=== PATIENT | female | born 1990 | race Caucasian/White ===

== ENCOUNTER → 2021-04-25 08:48 | Outpatient (CLI) | payer OTHER, SELFPAY ==
[2021-04-25 09:32] LABS: Internal QC Validated? YES +Cl - CLEAR BKGD
[2021-04-25 09:42] LABS: Pregnancy, Serum, hCG Quali. POSITIVE Negative
== END ==
PROVIDERS: PCP Nurse Practitioner; Referring Provider Nurse Practitioner Family; Visit Provider Nurse Practitioner Family
DX: N92.6 Irregular menstruation, unspecified (principal)
CPT/HCPCS: 36415; 84703

== ENCOUNTER → 2021-04-30 10:35 | Outpatient (CLI) | payer OTHER, SELFPAY ==
[2016-08-27 07:08] VITALS: BMI 34.3
[2021-04-30 10:53] LABS: Hematocrit 41.7 % (37-47); Hemoglobin 14.3 g/dL (12.0-15.0); Mean Corp Hgb Conc 34.3 g/dL (32-36); Mean Corpuscular Hgb 29.9 pg (27.0-32.0); Mean Corpuscular Volume 87.1 fL (81-99); Mean Platelet Vol. 10.7 fl (6.2-12.0); Platelet Count 216 K/mm3 (150-450); RBC Distribution Width CV 12.6 % (11.6-14.6); RBC Distribution Width SD 39.8 fl (35.1-43.9); Red Blood Count 4.79 M/mm3 (4.2-5.4); White Blood Count 7.7 K/mm3 (4.4-11.0)
[2021-04-30 11:10] LABS: hCG Titer Quant., Serum 845 mIU/mL (1-3)
== END ==
PROVIDERS: PCP Nurse Practitioner; Visit Provider Obstetrics & Gynecology
DX: O26.899 Other specified pregnancy related conditions, unspecified trimester (principal); R10.2 Pelvic and perineal pain; Z3A.00 Weeks of gestation of pregnancy not specified
CPT/HCPCS: 36415; 84702; 85027; 86850; 86900; 86901

== ENCOUNTER → 2021-05-02 08:36 | Outpatient (CLI) | payer OTHER, SELFPAY ==
[2016-08-27 07:08] VITALS: BMI 34.3
[2021-05-02 10:53] LABS: hCG Titer Quant., Serum 1788 mIU/mL (1-3)
== END ==
PROVIDERS: PCP Nurse Practitioner; Visit Provider Obstetrics & Gynecology
DX: O26.899 Other specified pregnancy related conditions, unspecified trimester (principal); R10.2 Pelvic and perineal pain; Z3A.00 Weeks of gestation of pregnancy not specified
CPT/HCPCS: 36415; 84702

== ENCOUNTER 2021-05-09 05:35 | Emergency (ER) | payer OTHER, MEDICAID, SELFPAY ==
[2021-05-09 05:37] VITALS: BP 117/92; PULSE 108; RESP 16; TEMP 36.3; O2SAT 100; BMI 22.8
--- NOTE | 2021-05-09 05:45 | EKG12_ITS ---
Test Reason : PAIN/OTHER Blood Pressure : / mmHG Vent. Rate : 088 BPM Atrial Rate : 088 BPM P-R Int : 140 ms QRS Dur : 076 ms QT Int : 338 ms P-R-T Axes : 073 068 062 degrees QTc Int : 408 ms Normal sinus rhythm Normal ECG Confirmed by DOC JERONIMO, JESSIE ([id number]), production editor LISA MANNING ([id number]) on 05/13/2021 10:15:47 AM Referred By: VIKTOR Confirmed By:JESSIE ROACH MD
--- NOTE | 2021-05-09 05:46 | EDS_ITS ---
HPI History of Present Illness Chief Complaint: Other, Pain/Inj Narrative Narrative: 31-year-old female with history of bulimia presenting with right jaw pain. She states it started yesterday. It does not hurt worse with chewing. She denies any dental pain. She denies any chest pain, palpitations, shortness of breath. She states she was googling symptoms of right jaw pain and thought she might be having a heart attack. She has no history of cardiac disease. She does not have hypertension, diabetes, hyperlipidemia. No history of DVT/PE. [facility] Medical History Bulimia Home Medications vit,[id number] [Prenatabs FA] 1 tab PO DAILY 08/27/16 [History Last Taken 08/26/16 22:00] Allergy/AdvReac Type Severity Reaction Status Date / Time No Known Allergies Allergy Verified 05/09/21 05:37 Surgical History History of Social History Smoking Status: Never smoker ROS ROS ED Constitutional Constitutional ED: Denies chills or fever(s) Eyes Eyes: Denies blurry vision or change in vision ENT ENT ED: Reports other Details: Right jaw pain ; Denies rhinorrhea or sore throat Cardiovascular Cardiovascular: Denies chest pain or palpitations Respiratory/Chest Respiratory/Chest: Denies cough or dyspnea Gastrointestinal Gastrointestinal: Denies abdominal pain, nausea or vomiting Genitourinary Genitourinary ED: Denies dysuria Integumentary Denies abscess or rash Neurologic Neurologic: Denies headache(s) or paresthesias Psychiatric Psychiatric: Reports anxiety; Denies depression EXAM Physical Exam Const Vital Signs: 05/09/21 05:37 Temperature 97.3 F L Temperature Source Temporal Pulse Rate 108 H Respiratory Rate 16 Blood Pressure 117/92 H Blood Pressure Mean 100 Pulse Ox 100 Oxygen Delivery Method Room Air Positive well nourished General Appearance ED: NAD; Negative for pallor HEENT Reports normocephalic, head/scalp atraumatic and moist mucous membranes HEENT Narrative: Mild tenderness to palpation right TMJ. No jaw malocclusion. No audible or probable click or pop. atraumatic Mouth ED: Yes oral and palatal mucosa normal, Yes lips normal, Yes tongue normal and Yes salivary gland normal Mouth: oral and palatal mucosa normal, lips normal, tongue normal and salivary gland normal Eyes PERRL and EOMs intact bilaterally Neck no lymphadenopathy and supple Chest Wall inspection of chest normal and palpation of chest normal Resp normal respiratory effort and clear to auscultation bilaterally Auscultation: Negative for rales, rhonchi or wheezes Cardio regular rate and regular rhythm GI normal to inspection, nondistended, normoactive bowel sounds and non-distended Auscultation: normoactive bowel sounds Palpation: soft Narrative: Deferred Back/Spine no CVA tenderness Cervical Spine: Negative for cervical spine tenderness Neuro oriented x3 and CN's II-XII intact bilaterally Sensorium / Orientation: alert Motor Exam: strength 5/5 throughout Psych mental status grossly normal Attitude: No agitated Skin no rashes or lesions noted and no wounds General Skin Exam: Negative for jaundice or pallor MDM MDM MDM Narrative Medical decision making narrative: Patient presenting with nontraumatic right jaw pain. She is not having chest pain or shortness of breath. She states she was googling things it would cause jaw pain and she is concerned she is having a heart attack although she has no risk factors. Her heart score is 0. Patient counseled that this is unlikely to be a heart attack given she does not have any cardiac symptoms. She requests an EKG be performed. EKG on my interpretation is sinus rhythm at 88 bpm without signs of ST elevation or depression. There were no dysrhythmias noted. Patient counseled she should use Tylenol alternating with ibuprofen at home. She can use ice as well. She will follow- up with her PCP to ensure resolution. Impression: 1. Right jaw pain Discharge Plan Triage Chief Complaint: Other, Pain/Inj ED Provider: Al Decker Dx/Rx/DC Orders Prescriptions: No Action Prenatabs FA 1 TABLET tablet 1 tab PO DAILY RF: 0 Primary Care Provider: Carolyn Murphy NP
[2021-05-09 06:25] VITALS: RESP 16
== END 2021-05-09 06:25 | disposition home or self-care (01) ==
PROVIDERS: Emergency Provider Student in an Organized Health Care Education/Training Program; PCP Nurse Practitioner
DX: R68.84 Jaw pain (principal)
CPT/HCPCS: 93005; 99282

== ENCOUNTER → 2021-06-25 13:23 | Outpatient (CLI) | payer OTHER, SELFPAY ==
[2021-06-25 17:35] LABS: Absolute Neutrophil Count 4.5 X10^3/uL (2.0-7.7); Basophil# 0.01 X10^3/uL; Basophil% 0.2 % (0-1); Eosinophil# 0.13 X10^3/uL; Eosinophils% 2.1 % (0-5); Hematocrit 35.4 % (37-47); Hemoglobin 12.3 g/dL (12.0-15.0); Lymphocyte % 20.9 % (19-41); Mean Corp Hgb Conc 34.7 g/dL (32-36); Mean Corpuscular Hgb 30.4 pg (27.0-32.0); Mean Corpuscular Volume 87.4 fL (81-99); Mean Platelet Vol. 10.3 fl (6.2-12.0); Monocyte% 4.8 % (0-10); NRBC Flagged by Analyzer 0 % (0-5); Neutrophil # 4.45 X10^3/uL (2.7-7.7); Neutrophil % 71.5 % (47-70); Platelet Count 156 K/mm3 (150-450); RBC Distribution Width CV 11.9 % (11.6-14.6); RBC Distribution Width SD 38.7 fl (35.1-43.9); Red Blood Count 4.05 M/mm3 (4.2-5.4); White Blood Count 6.2 K/mm3 (4.4-11.0)
[2021-06-26 12:42] LABS: HIV - WCH Preliminary Reactive (Nonreactive); Hepatitis B Surface Antigen Non-Reactive (Nonreactive); Rubella IgG Reactive (Nonreactive); Syphilis Antibodies Non-reactive
== END ==
LOC: LAB 13:37 → MTLAB 14:42
PROVIDERS: PCP Nurse Practitioner; Referring Provider Obstetrics & Gynecology; Visit Provider Obstetrics & Gynecology
DX: Z34.81 Encounter for supervision of other normal pregnancy, first trimester (principal)
CPT/HCPCS: 36415; 85025; 86703; 86762; 86780; 86803; 86804; 86850; 86900; 86901; 87340

== ENCOUNTER → 2021-08-04 13:43 | Outpatient (CLI) | payer OTHER, SELFPAY ==
--- NOTE | 2021-08-04 14:43 | US_ITS ---
STUDY: SECOND AND THIRD TRIMESTER OBSTETRICAL ULTRASOUND REASON FOR EXAM: Female, 31 years old ANATOMY LMP: 03/27/2021. TECHNIQUE: Transabdominal TECHNICAL QUALITY: Adequate. PRIOR ULTRASOUND: None. FINDINGS: There is a single intrauterine fetus. The fetus is in a cephalic presentation. There is demonstrated cardiac activity with a heart rate of 137 bpm. There is a normal amniotic fluid volume. The largest amniotic fluid pocket measures 3.4 cm x 3.9 cm. The amniotic fluid index (SHYANN) is within normal limits. The placenta is anterior in location and is not low lying. There are Grade 0 placental changes. The cervix measures 3.8 cm in length. There is a 2.2 cm x 2.2 cm complex cyst in the left ovary. BIOMETRY: BPD: 4.13 cm: 18 weeks, 3 days HC: 15.5 cm: 18 weeks, 3 days AC: 13.3 cm: 18 weeks, 5 days FL: 2.64 cm: 18 weeks, 0 days CI: 76.5% FL/BPD: 63.8% FL/HC: FL/AC: 19.8% HC/AC: 1.16 age by current US: 18 weeks, 2 days. LAURA by current US: 01/04/2020. Estimated weight: 241 grams, +/- 36 grams, 38.1 %. Age by LMP: 18 weeks, 4 days. LAURA by LMP: 01/01/2022. ANATOMY: Gender: Cranium: Normal lateral ventricles. Normal choroid plexus. Normal cerebellum. Normal cisterna magna. Normal face, nose and lips. Chest: Normal 4-chamber heart. Abdomen/Pelvis: Normal diaphragm. Normal stomach. Normal abdominal wall. Normal cord insertion. Normal 3 vessel cord. Normal kidneys. Normal bladder. Spine: Suboptimal visualization of the cervical, thoracic, lumbar spine and sacrum due to the positioning. Extremities: Normal bilateral upper extremities. Normal bilateral lower extremities. US/OB Anatomy Scan IMPRESSION: Single live intrauterine gestation with a mean gestational age of 18 weeks and 2 days. Limited visualization of the spine due to the positioning. Follow-up recommended. Electronically Signed: Didier Daniels MD at 9:16 EDT , Service support ,
== END ==
PROVIDERS: PCP Nurse Practitioner; Referring Provider Advanced Practice Midwife; Visit Provider Advanced Practice Midwife
DX: Z34.82 Encounter for supervision of other normal pregnancy, second trimester (principal)
CPT/HCPCS: 76805

== ENCOUNTER 2021-10-09 14:33 | Outpatient (CLI) | payer OTHER, SELFPAY ==
[2021-10-09 14:32] VITALS: BP 106/73; PULSE 91; RESP 16; TEMP 36.8; O2SAT 100; BMI 29.2
[2021-10-09] MEDS: 0.9% Saline Lock 10 ML Syringe IV (14:39)
[2021-10-09 15:13] VITALS: BP 96/63; PULSE 91; RESP 16; TEMP 36.5; O2SAT 100
[2021-10-09 15:58] VITALS: BP 98/61; PULSE 88; RESP 16; TEMP 37.2; O2SAT 100
== END 2021-10-09 16:18 | disposition home or self-care (01) ==
LOC: MS3OUT 14:33 → MS3 14:35
PROVIDERS: PCP Nurse Practitioner; Referring Provider Nurse Practitioner Adult Health; Visit Provider Nurse Practitioner Adult Health
DX: Z23 Encounter for immunization (principal); U07.1 COVID-19
CPT/HCPCS: J7050; M0245; Q0245; A4216

== ENCOUNTER 2021-10-25 08:54 | Outpatient (CLI) | payer OTHER, SELFPAY ==
[2021-10-25 09:46] LABS: Hematocrit 33.8 % (37-47); Hemoglobin 11.5 g/dL (12.0-15.0); Mean Corpuscular Hgb 28.8 pg (27.0-32.0); Mean Corpuscular Volume 84.5 fL (81-99); Mean Platelet Vol. 10.4 fl (6.2-12.0); Platelet Count 194 K/mm3 (150-450); RBC Distribution Width CV 13.2 % (11.6-14.6); RBC Distribution Width SD 40.6 fl (35.1-43.9); White Blood Count 9.8 K/mm3 (4.4-11.0)
[2021-10-25 10:19] LABS: Glucose Challenge Gest 1H 50g 140 mg/dL (70-140)
[2021-10-27 08:57] LABS: Syphilis Antibodies Non-reactive
== END 2021-10-25 23:59 | disposition short-term general hospital (02) ==
LOC: LAB 08:55
PROVIDERS: PCP Nurse Practitioner; Referring Provider Obstetrics & Gynecology; Visit Provider Obstetrics & Gynecology
DX: Z34.92 Encounter for supervision of normal pregnancy, unspecified, second trimester (principal)
CPT/HCPCS: 36415; 82950; 85027; 86780; 86850; 86900; 86901

== ENCOUNTER 2021-11-22 06:59 | Outpatient (CLI) | payer OTHER, MEDICAID, SELFPAY ==
[2021-11-22 07:21] LABS: Bedside Glucose 65 mg/dL (70-110)
[2021-11-22 07:44] LABS: Glucose GTT-Gestation. Fasting 74 mg/dL (<105)
[2021-11-22 09:03] LABS: Glucose GTT-Gestational 1 Hr 177 mg/dL (<190)
[2021-11-22 09:56] LABS: Glucose GTT-Gestational 2 Hr 153 mg/dL (<165)
[2021-11-22 10:48] LABS: Glucose GTT-Gestational 3 Hr 103 L (<145)
== END 2021-11-22 23:59 | disposition home or self-care (01) ==
PROVIDERS: PCP Nurse Practitioner; Referring Provider Obstetrics & Gynecology; Visit Provider Obstetrics & Gynecology
DX: O09.93 Supervision of high risk pregnancy, unspecified, third trimester (principal); O99.810 Abnormal glucose complicating pregnancy; Z3A.30 30 weeks gestation of pregnancy
CPT/HCPCS: 36415; 82951; 82952; 82962

== ENCOUNTER 2021-12-17 08:28 | Outpatient (CLI) | payer OTHER, MEDICAID, SELFPAY ==
[2021-12-17 08:36] VITALS: BP 128/83; PULSE 96
[2021-12-17 08:37] VITALS: PULSE 101; O2SAT 100
[2021-12-17 08:38] VITALS: BP 128/83; PULSE 100; TEMP 36.8; O2SAT 100
[2021-12-17 08:44] VITALS: BMI 30.1
--- NOTE | 2021-12-17 09:02 | OB.TRI.NOTE ---
HPI - General HPI Narrative GERTRUDIS MARROQUIN, is a 31 F who presents complaining of decreased movement over the last day or 2. No vaginal bleeding or leaking of fluid Maternal Data Information Final LAURA: 01/01/22 Gestational age: 37 6/7 PFSH PFSH Medical History Bulimia Home Medications vit,[id number] [Prenatabs FA] 1 tab PO DAILY 08/27/16 [History Last Taken 12/16/21 22:00] Allergy/AdvReac Type Severity Reaction Status Date / Time Sulfa (Sulfonamide Allergy Unknown unknown Verified 10/08/21 14:43 Antibiotics) Surgical History History of Social History Smoking Status: Never smoker History Elective abortions Hx Para 0 Spontaneous abortions Hx # Term Pregnancies Ectopic pregnancies Hx # Pregnancies Multiple births # of living children NST FHR Rate Baby A Baseline: normal Accelerations:: 15 x 15 Decelerations:: None NST Reactive:: Yes FHR Category:: Category I Uterine Activity:: Quiet Assessment & Plan (1) 37 weeks gestation of : (2) Decreased movement affecting management of mother, antepartum: PLAN: Kick counts. Follow-up at next appointment or as needed. NST is reactive, patient is reassured.
== END 2021-12-17 23:59 | disposition home or self-care (01) ==
LOC: WPOUT 08:30 → WP 08:30
PROVIDERS: PCP Nurse Practitioner; Visit Provider Obstetrics & Gynecology
DX: O36.8130 Decreased fetal movements, third trimester, not applicable or unspecified (principal); O34.219 Maternal care for unspecified type scar from previous cesarean delivery; Z3A.37 37 weeks gestation of pregnancy
CPT/HCPCS: 59025; 59050; 99218; G0378

== ENCOUNTER 2021-12-25 09:20 | Inpatient (IN) | payer OTHER, MEDICAID, SELFPAY ==
[2021-12-25] VITALS (14 sets, daily range): BP systolic 85–107; BP diastolic 37–71; PULSE 64–104; RESP 14–18; TEMP 36.2–36.8; O2SAT 95–100; BMI 30.3
[2021-12-25] MEDS: Lactated Ringers 1,000 ML 999 ML IV (10:16)
[2021-12-25 10:17] LABS: Absolute Lymphocyte Count 1.12 X10^3/uL (0.83-4.51); Absolute Neutrophil Count 8.6 X10^3/uL (2.0-7.7); Basophil# 0.04 X10^3/uL; Basophil% 0.4 % (0-1); Eosinophil# 0.15 X10^3/uL; Eosinophils% 1.4 % (0-5); Hematocrit 34.1 % (37-47); Hemoglobin 11.9 g/dL (12.0-15.0); Lymphocyte # 1.12 X10^3/ul (0.83-4.51); Lymphocyte % 10.7 % (19-41); Mean Corp Hgb Conc 34.9 g/dL (32-36); Mean Corpuscular Hgb 28.3 pg (27.0-32.0); Monocyte# 0.48 X10^3/uL; Monocyte% 4.6 % (0-10); NRBC Flagged by Analyzer 0 % (0-5); Neutrophil # 8.59 X10^3/uL (2.7-7.7); Neutrophil % 82.1 % (47-70); Platelet Count 190 K/mm3 (150-450); RBC Distribution Width CV 14.2 % (11.6-14.6); RBC Distribution Width SD 40.8 fl (35.1-43.9); Red Blood Count 4.21 M/mm3 (4.2-5.4); White Blood Count 10.5 K/mm3 (4.4-11.0)
[2021-12-25] MEDS: Acetaminophen 500 MG Tablet 1000 MG PO ×2 (10:17→19:01)
[2021-12-25] MEDS: Lactated Ringers 1,000 ML 150 ML IV (11:37)
[2021-12-25] MEDS: Sodium Citrate/Citric Acid 30 ML UDC PO (11:37)
--- NOTE | 2021-12-25 11:55 | HP.PCM.OB_ITS ---
HPI - General General Date of Admission: 12/25/21 HPI Narrative GERTRUDIS MARROQUIN, is a 31 F who presents for . Maternal Data Information Final LAURA: 01/01/22 Gestational age: 39 weeks [facility] Medical History Autoimmune disease Bulimia Depression Psychiatric disorder Home Medications vit,[id number] [Prenatabs FA] 1 tab PO DAILY 08/27/16 [History Last Taken 12/24/21 19:30 1 tab] Allergy/AdvReac Type Severity Reaction Status Date / Time Sulfa (Sulfonamide Allergy Unknown unknown Verified 12/25/21 10:18 Antibiotics) Surgical History (Updated 12/25/21 @ 11:[address] Mahogany Cisneros MD) History of History of surgery Previous delivery affecting Social History Smoking Status: Never smoker History Elective abortions Hx Para 1 Spontaneous abortions Hx # Term Pregnancies Ectopic pregnancies Hx # Pregnancies Multiple births # of living children Vital Signs Vital Signs Vital Signs: Weight Weight: 171 lb 4.787 oz Body Mass Index (BMI) 30.3 Labs Labs Labs: Blood Type A POSITIVE Antibody Screen NEGATIVE Hct 34.1 % (37-47) L Hgb 11.9 g/dL (12.0-15.0) L Obstetrics US Syphilis Total Ab Non-reactive VZV IgG Antibody 707 index (Immune >165) Rubella IgG Antibody Reactive (Nonreactive) Hep Bs Antigen Non-Reactive (Nonreactive) HIV 1&2 Antibody Preliminary Reactive (Nonreactive) H C.trachomatis DNA (PCR) Negative (Negative) Glucose 1 Hr 50 gm 140 mg/dL (70-140) Rhogam given: No Miscellaneous Test See [facility] H&P Assessment & Plan (1) Previous delivery affecting : COMMENT: @ 39 weeks PLAN: Admit to L&D Proceed with repeat Sterilization request - plan for tubal sterilization, reviewed risks of failure & regret Informed consent signed Routine care
[2021-12-25] MEDS: Cefazolin 2 GM in 0.9% Normal Saline 100 ML IV (11:58)
--- NOTE | 2021-12-25 12:30 | FALS_PTH ---
PATIENT: GERTRUDIS MARROQUIN LOC: [facility] U#:[id number] AGE/SX: 31/F ROOM: WP007 RE12/25/[address]: Dr. Mahogany Cisneros MD : 1990 BED: 1 DIS: 12/27/2021 SPEC #: [id number] RECD: 12/26/21 12:20 STATUS: GISELLE GLENYS #: [id number] JT: 12/25/21 12:[address]: Mahogany Cisneros DEPT: SURGICAL PATHOLOGY RECD BY: Viki English ENTERED: 12/26/21 12:20 SP TYPE: FALL TUBES OTHR DR: Carolyn Murphy, REPAIRER WOOD FURNITURE-C Tissues: Fallopian tube Procedures: Surgery Specimen Level II HEADER OPERATION: Tubal ligation PRE-OP DIAGNOSIS: Sterilization TISSUE SUBMITTED: Fallopian tubes, suture in right tube MICROSCOPIC DIAGNOSIS Bilateral fallopian tubes, salpingectomy: Bilateral fallopian tubes, no pathologic diagnosis. JUNI:june 12/29/2021 MICROSCOPIC DESCRIPTION Slides are reviewed. GROSS DESCRIPTION Received in fixative is one container labeled with the patient's name and designated bilateral fallopian tubes, suture in right tube. The specimen consists of bilateral fallopian tubes including fimbrial ends. The right fallopian tube measures 8 cm in length and 0.6 cm in diameter and left fallopian tube measures 6 cm in length and 0.6 cm in diameter. The left fallopian tube fimbrial end is detached and measures 1 x 0.5 x 0.4 cm. Sections reveal unremarkable cut surfaces. Motor Vehicle Examiner sections are submitted in two cassettes as follows: 1 ? right fallopian tube, 2 ? left fallopian tube. / SJ:rg 12/26/2021 TC:4 CPT: 09749 x2
--- NOTE | 2021-12-25 13:19 | OP.PCM_ITS ---
Maternal Data Information Final LAURA: 01/01/22 Gestational age: 39 weeks Details Operative Information Date of Procedure: 12/25/21 Pre-Operative Diagnosis: (1) Prior section (2) Sterilization request Post-Operative Diagnosis: Same Indications for : Repeat Elective and Desires elective sterilization Indications Narrative: The patient was taken to the operating room where spinal anesthesia was placed & found to be adequate. She was prepped and draped in the dorsal supine position with a leftward tilt. A Pfannenstiel skin incision was made approximately 2 cm above the symphysis pubis and carried through to the underlying fascia with the scalpel. The fascia was incised incised in the midline and extended laterally with the Beltran scissors. The rectus muscles were in the midline and the peritoneum was entered carefully and bluntly. The peritoneal incision was stretched and the bladder blade was inserted. Vesicouterine peritoneum was tented up, incised & then bladder flap created gently. The uterine incision was made in a low transverse fashion with the scalpel and extended superiorly and inferiorly with blunt dissection. The 's head was brought to the incision in the flexed position and delivered without difficulty. The head was gently guided to allow delivery of the anterior and posterior shoulders. The body then delivered with fundal pressure in the standard fashion. The 3VC cord was clamped and cut in delayed fashion. The was handed off to the waiting pediatric physical therapist. The placenta was delivered with fundal massage and gentle traction in the standard fashion. The uterus was exteriorized and cleared of clots and debris. The uterine incision was closed with #1 Vicryl suture in a running locked fashion. Monocryl suture was used in an imbricating fashion. The incision was examined and was found to be hemostatic. Attention was turned to the fallopian tubes to perform a bilateral salpingectomy. The right fallopian tube was grasped with the Ligasure, cauterized and cut. This proceed was repeated until the entire right fallopian tube was removed. The left fallopian tube was grasped with the Ligasure, cauterized and cut. This proceed was repeated until the entire left fallopian tube was removed. Both salpingectomy sites were examined & confirmed to be hemostatic. The uterus was carefully returned to the abdominal cavity. Again both salpingectomy sites were examined & confirmed to be hemostatic. Rachael was placed on the bilateral salpingectomy sites. After gentle irrigation with a moist lap on the uterine incision Rachael was placed over the uterine incision as some areas were denuded (but hemostatic). The peritoneum was closed with vicryl suture in running fashion The rectus muscle was examined and any bleeding was Bovie cauterized. The fascia was closed with PDS suture in a running standard fashion. The subcutaneous tissue was examining and any bleeding was Bovie cauterized. The subcutaneous tissue was reapproximated with interrupted sutures. The skin was closed in a subcuti cular fashion by the CHILLING HOOD OPERATOR while I was present in the labor & delivery unit. The remainder of the procedure was performed by me with assistance. All sponge, lap, and needle counts were correct. The patient was taken to her room for recovery in a stable condition. Classification: Scheduled Procedure Type: bilateral salpingectomy sole conforming machine operator #1: Shelbi Recinos Type of Anesthesia: Spinal Antibiotic Given: Ancef 2 grams IV x1 Estimated Blood Loss: 700ml Fluids Replaced: 700ml Procedure Start Time: 12:26 Procedure Stop Time: 13:26 Findings Description of Procedure: Normal maternal uterus and adnexa Presentation: Positive for Vertex Amniotic Membrane Rupture Type: Artificial Amniotic Fluid Description: Clear Placenta Disposition: [facility] Cord Vessel Description: 3 Vessels Cord Entanglement: None Infant A Gender: Female (Brock, weight = 3190g) (1 minute): 9 (5 minute): 9 Delayed Cord Clamping: Yes Complications Complications: None
[2021-12-25] MEDS: Oxytocin 30 units/NS 500 ml 30 UNITS/500 ML IV.SOLN 167 UNITS IV (13:40)
[2021-12-25] MEDS: Ketorolac 30 MG/ML Syringe IV ×2 (14:33→20:33)
[2021-12-25] MEDS: Lactated Ringers 1,000 ML 100 ML IV (17:16)
[2021-12-25] MEDS: 0.9% Saline Lock 10 ML Syringe IV (20:33)
[2021-12-25] MEDS: Lactated Ringers 500 ML 999 ML IV (21:37)
[2021-12-26] MEDS: Acetaminophen 500 MG Tablet 1000 MG PO ×4 (02:58→21:14)
[2021-12-26] MEDS: Enoxaparin 40 MG/0.4 ML Syringe SC ×2 (02:59→10:51)
[2021-12-26] MEDS: 0.9% Saline Lock 10 ML Syringe IV ×2 (03:02→09:19)
[2021-12-26] MEDS: Ketorolac 30 MG/ML Syringe IV ×2 (03:03→09:19)
[2021-12-26 03:09] VITALS: BP 90/62; PULSE 70; RESP 16; TEMP 36.4; O2SAT 100
[2021-12-26 05:46] LABS: Hematocrit 30.3 % (37-47); Hemoglobin 10.1 g/dL (12.0-15.0); Mean Corp Hgb Conc 33.3 g/dL (32-36); Mean Corpuscular Hgb 27.2 pg (27.0-32.0); Mean Corpuscular Volume 81.7 fL (81-99); Mean Platelet Vol. 10.8 fl (6.2-12.0); Platelet Count 141 K/mm3 (150-450); RBC Distribution Width CV 14.4 % (11.6-14.6); RBC Distribution Width SD 41.7 fl (35.1-43.9); Red Blood Count 3.71 M/mm3 (4.2-5.4); White Blood Count 9.5 K/mm3 (4.4-11.0)
--- NOTE | 2021-12-26 08:35 | PN.OBGYN_ITS ---
Subjective Subjective Patient seen at bedside. Feeling good. Denies any pain. Ambulating and voiding without difficulty. Denies headache, vision changes, dizziness, SOB or CP. without difficulty. May desire discharge home later tonight or tomorrow. Objective Data Objective Data Vital Signs: Vital Signs Temp Pulse Resp BP Pulse Ox 97.5 F L 70 16 90/62 100 12/26/21 03:09 12/26/21 03:09 12/26/21 03:09 12/26/21 03:09 12/26/21 03:09 Oxygen Delivery Method Room Air Weight: 171 lb 4.787 oz Body Mass Index (BMI) 30.3 Intake & Output: Intake and Output for Last 24 Hours 12/24/21 12/25/21 12/26/21 23:59 23:59 23:59 Intake Total 3990 / 3990 565 / 565 Output Total 1300 / 1300 900 / 900 Balance 2690 / 2690 -335 / -335 Lab / Micro Data Result Diagrams: 12/26/21 05:20 Labs: Laboratory Results - last 24 hr 12/25/21 10:00: WBC 10.5, RBC 4.21, Hgb 11.9 L, Hct 34.1 L, MCV 81.0, MCH 28.3, MCHC 34.9, RDW Std Deviation 40.8, RDW Coeff of Sandra 14.2, Plt Count 190, MPV 11.0, Immature Gran % (Auto) 0.800, Neut % (Auto) 82.1 H, Lymph % (Auto) 10.7 L, [place] % (Auto) 4.6, Eos % (Auto) 1.4, Baso % (Auto) 0.4, Absolute Neuts (auto) 8.6 H, Absolute Lymphs (auto) 1.12, Nucleated RBC % 0 12/25/21 10:00: Blood Type A POSITIVE, Antibody Screen NEGATIVE 12/26/21 05:20: WBC 9.5, RBC 3.71 L, Hgb 10.1 L, Hct 30.3 L, MCV 81.7, MCH 27.2, MCHC 33.3, RDW Std Deviation 41.7, RDW Coeff of Sandra 14.4, Plt Count 141 L, MPV 10.8 ROS Eyes Eyes: Denies blurry vision, change in vision or spots in vision ENT HEENT: Denies dizziness or headache(s) Cardiovascular Cardiovascular: Denies abdominal pain, chest pain or dyspnea Respiratory/Chest Respiratory/Chest: Denies cough, dyspnea, shortness of breath at rest or shortness of breath with exertion Gastrointestinal Gastrointestinal: Denies abdominal pain, diarrhea or vomiting Genitourinary Genitourinary: Denies change in urinary stream, difficulty urinating or dysuria Musculoskeletal Musculoskeletal: Reports none Integumentary Integumentary: Denies rash Neurologic Neurologic: Denies dizziness, headache(s), memory loss or weakness Physical Exam Narrative Dressing is dry and intact Const alert and no apparent distress General Appearance: cooperative and comfortable Exam Limitations: no limitations HEENT normocephalic Eyes General Eye: normal appearance of both eyes Neck full ROM General: normal visual inspection Chest Chest: symmetrical chest wall rise Resp normal respiratory effort and normal air movement Effort and Inspection: symmetric chest movement Auscultation: clear to auscultation bilaterally Cardio regular rate and regular rhythm GI normal to inspection, nondistended, normoactive bowel sounds Back/Spine normal ROM Extremity full ROM and no calf tenderness General Extremity: normal exam except as noted Skin no rashes or lesions noted Neuro CN's II-XII intact bilaterally Psych mental status grossly normal Assessment & Plan (1) Status post repeat low transverse section: (2) Care and examination of lactating mother: PLAN: PO Day 1 Repeat C/S Pain control support Ambulation Anticipate discharge home tonight or early tomorrow
[2021-12-26 08:53] VITALS: BP 93/54; PULSE 97; RESP 18; TEMP 36.8; O2SAT 98
[2021-12-26] MEDS: Senna/Docusate Sodium 1 Tablet PO (10:51)
[2021-12-26 13:45] VITALS: BP 100/52; PULSE 75; RESP 20; TEMP 36.6
--- NOTE | 2021-12-26 16:20 | NURSING ---
Talked with Kayce about pt. reporting to Architecture Professor, Svetlana, that she would be interested in Zoloft to go home with. Reports that she had taken it after her last delivery, and did not have any issues with pp depression at that time. Had been recommended by OB to get rx from PCP, but pt. reports having no PCP. Kayce will see later when she comes to round on floor again. Also reported that pt. is considering d/c this evening, but baby has not fed well today, so encouraged to make sure feeds going well prior to d/c
[2021-12-26] MEDS: Ibuprofen 600 MG Tablet PO (18:00)
--- NOTE | 2021-12-26 20:08 | CM.ED ---
SW Note Mom: Lauren Petit PNC: [facility] Control: Tubal Due Date 01/01/22 Baby: Brock Santiago : 12/25/21 Apgars: 9/9 Weight: 3190 grams Breast feeding. Patient reports that she is trying to breast feed. SW reminded patient that there is an cyber systems operations specialist available for consult and patient verbalized understanding MOB's other children: Patient has a 5 year old son. While she is in the hospital the child's paternal grandparents are watching her son until her mother gets her child today. Patient's son is currently in preschool. He has been evaluated at [facility] for some issues with academically being delayed such as writing her name. Patient said that her son is going to [employer] or [employer] next year for Kindergarten. Housing: Patient resides in a house with her 5 year old son and now the nb. Transportation: Patient reports access to transportation Supplies: Patient reports she has a carseat, diapers, clothes, bassinet and crib Supports: Patient said that her sister, Sasha Ivy and mother are supports. Both patient's sister and mother live 10 minutes away. Education leveled: Patient graduated HS. No learning issues. Patient reports receiving training on medical assisting and attended [facility] for their DOOR FRAME BUILDER program Employment. Patient works at [employer]. She works in the Diagnostic department maritime officer. She plans to take 12 weeks off. Patient said that when she returns to work her mom and the daycare will care for the nb. Community Agency Involvement: Patient reports that she plans to enroll the nb on Medicaid [place]. Patient receives WIC. Patient denied a referral to HMG services but SW did advise that the information regarding HMG was included in a resource packet that would be provided to her. FOB: Da- Patient was very concerned about Da's name NOT be placed on the certificate Patient reports that she and the fob are not together. Patient said that during her she learned things about the FOB that made her concerned about the nb's safety if the FOB had the nb. Patient said that the FOB has alcohol issues but denied any other MH/DV issues. Per charting the FOB will not be involved. Per charting patient is . Maternal MH History. Patient reports that she sees Dr. Eliane Perry and was scheduled to see her on the past Wednesday related to anxiety regarding the childbirth however, was unable to keep the appointment due to childcare issues. Patient reports she has an appointment with Dr. Bert Perry on the . Patient said that she sees her psychologist on a sporadic basis due to her work schedule. Patient said that her psychologist is very helpful. Patient reports patient is not on any medication for anxiety or depression. Patient said that she previously was on Zoloft after the of her son. Patient said that she did feel she had baby blues but not post depression with her son. Patient said that she would like to take Zoloft but her OB will not prescribe it and referred her to her PCP. SW offered to provide the PCP with list of PCP and patient indicated that she did not want to go to a PCP where she knew the staff.Patient denied any SI/HI. Patient denied any psychiatric hospitalization. SW educated patient on Post Depression, Safe Sleeping and Shaken Baby Syndrome. Patient reports she has never smoked. Patient reports no alcohol or drug use while and reports she drinks socially when not . SW provided patient with handout on information and support regarding post and resources. SW asked patient if she had any concerns and she said no. SW spoke to patient privately in her room. Patient's sister was in the room but taking a shower while this contract writer spoke to patient. SW spoke to GAIL King who had no concerns regarding patient. SW spoke to Christine about patient reporting she would like psych medication at discharge and Christine will update MD. No further SW needs at this time Plan: Home at discharge Svetlana ADAMS
[2021-12-26 21:15] VITALS: BP 115/70; PULSE 78; RESP 16; TEMP 36.6
[2021-12-27] MEDS: Ibuprofen 600 MG Tablet PO ×2 (00:18→06:55)
[2021-12-27] MEDS: Acetaminophen 500 MG Tablet 1000 MG PO ×2 (03:08→09:32)
[2021-12-27 03:10] VITALS: BP 110/61; PULSE 72; RESP 16; TEMP 36.8
--- NOTE | 2021-12-27 04:53 | DS.PCM_ITS ---
Providers Date of Admission: 12/25/21 Primary Care Physician: KARIN Barlow Reason For Visit: REPEAT C SECTION Diagnosis Discharge Diagnosis (1) Status post repeat low transverse section: Status: Acute Code(s): Z98.891 - History of uterine scar from previous surgery (2) Care and examination of lactating mother: Status: Acute Code(s): Z39.1 - Encounter for care and examination of lactating mother Medications at Discharge Home Medications vit,[id number] [Prenatabs FA] 1 tab PO DAILY 08/27/16 Hospital Course Operations section Summary of Care Provided Hospital Course: Patient was here for repeat section. Hospital course was uneventful. Physical Exam Narrative Patient seen at bedside. Feeling good. with minimal support. Ambulating and voiding without difficulty. Desires discharge home today. Const alert and no apparent distress General Appearance: cooperative and comfortable Exam Limitations: no limitations HEENT normocephalic Eyes General Eye: normal appearance of both eyes Neck full ROM General: normal visual inspection Chest Chest: symmetrical chest wall rise Resp normal respiratory effort and normal air movement Effort and Inspection: symmetric chest movement Auscultation: clear to auscultation bilaterally Cardio regular rate and regular rhythm GI normal to inspection, nondistended, normoactive bowel sounds Back/Spine normal ROM Extremity full ROM and no calf tenderness General Extremity: normal exam except as noted Skin no rashes or lesions noted Neuro CN's II-XII intact bilaterally Psych mental status grossly normal Weight / BMI Weight Weight: 171 lb 4.787 oz Body Mass Index (BMI) 30.3 ABG / Lab / Microbiology Data Result Diagrams: 12/26/21 05:20 Laboratory: Laboratory Results - last 24 hr 12/26/21 05:20: WBC 9.5, RBC 3.71 L, Hgb 10.1 L, Hct 30.3 L, MCV 81.7, MCH 27.2, MCHC 33.3, RDW Std Deviation 41.7, RDW Coeff of Sandra 14.4, Plt Count 141 L, MPV 10.8 D/C Instructions Discharge Diet: No restrictions May resume sexual activity in: 6-8 weeks Weight Bearing Status: Weight bearing as tolerated Lifting Restrictions: 20 lbs Call your doctor if your incision/area has: Continuous Slow Oozing, Increased Pain/ Swelling, Increased Redness, Foul Smelling Discharge and Swelling at the incision site Call your doctor if you observe: Fever of 101 or Higher, Inability to urinate, Using more than 1 pad per hour, Shortness of breath, Chest pain, Calf discomfort and Uncontrolled pain Remove Dressing in: 5 days Cleanse incision/area with: Soap & Water and Keep Dressing Clean & Dry When: 1 week in office for incision check or sooner if needed 6 weeks Meaningful Use Info Meaningful Use Diagnoses (Choose all that apply): None applicable Discharge Plan Admission Admit Date/Time: 12/25/21 09:20 Primary Reason for Your Visit: repeat C/S Attending Provider: Mahogany Cisneros Primary Care Provider: Carolyn Murphy NP Discharge Orders/Prescriptions Prescriptions: No Action Prenatabs FA 1 TABLET tablet 1 tab PO DAILY RF: 0 Referrals / Follow Up: Carolyn Murphy NP, [employer] [facility] [Primary Care Provider] - Disposition Disposition (needs filled in before D/C Order can be placed): Home, Self Care
[2021-12-27 08:20] VITALS: BP 102/65; PULSE 77; RESP 16; TEMP 37.3
[2021-12-27] MEDS: Senna/Docusate Sodium 1 Tablet PO (09:32)
[2021-12-27] MEDS: Enoxaparin 40 MG/0.4 ML Syringe SC (09:33)
[2021-12-30 09:46] LABS: Pathology Specimen OB SEE PATHOLOGY REPORT
--- NOTE | 2022-01-01 18:03 | NURSING ---
no answer on follow up phone call ,left voicemail
== END 2021-12-27 12:40 | disposition home or self-care (01) | DRG 785 ==
PROVIDERS: Admitting Provider Obstetrics & Gynecology; PCP Nurse Practitioner; Visit Provider Obstetrics & Gynecology
PROC: 10D00Z1 Extraction of Products of Conception, Low, Open Approach (ICD-10-PCS; CPT 59514; principal; 2021-12-25 11:45)
DX: O65.5 Obstructed labor due to abnormality of maternal pelvic organs (principal); O34.211 Maternal care for low transverse scar from previous cesarean delivery; Z30.2 Encounter for sterilization; Z3A.39 39 weeks gestation of pregnancy; Z37.0 Single live birth
CPT/HCPCS: 59025; 59050; 85025; 85027; 86850; 86900; 86901; 87635; 88302; 99218; 99251; C9803; J7120; A4216; G0378; G0463; J2405; U0003; U0005

== ENCOUNTER → 2022-08-14 | Outpatient (CLI) | payer OTHER, MEDICAID, SELFPAY ==
--- NOTE | 2022-08-14 12:01 | US_ITS ---
STUDY: ULTRASOUND BREAST - RIGHT REASON FOR EXAM: Female, 32 years old. Right breast mass. Tenderness. Patient is nursing. TECHNIQUE: Axial and longitudinal images of the RIGHT breast were performed with a high resolution ultrasound transducer. # OF IMAGES: 20 COMPARISON: None. FINDINGS: RIGHT Breast: The upper outer quadrant of the right breast was examined with ultrasound. There is dense fibroglandular tissue. Dilated ducts. No mass is seen. US/Breast Limited Unilateral IMPRESSION: Dense fibroglandular tissue. No evidence of abscess. ASSESSMENT CATEGORY: BIRADS Category 2: Benign. A letter regarding these results will be sent to the patient by the facility within 30 days. Electronically Signed: Didier Daniels MD at 13:02 EDT ,
== END | disposition home or self-care (01) ==
PROVIDERS: PCP Nurse Practitioner; Referring Provider Obstetrics & Gynecology; Visit Provider Obstetrics & Gynecology
DX: N63.10 Unspecified lump in the right breast, unspecified quadrant (principal)
CPT/HCPCS: 76642